=== PATIENT | female | born 1995 | race Caucasian/White ===

== ENCOUNTER 2017-11-14 04:16 | Inpatient (IN) ==
[2017-11-14] MEDS ORDERED: LIDOCAINE W/ SODIUM BICARB 0.5 ML SYR ONE (04:44)
[2017-11-14] MEDS ORDERED: NORMAL SALINE 10 ML SYRINGE FLUSH IVP PRN ×3 (04:55→20:06)
[2017-11-14] MEDS ORDERED: NALOXONE 0.4 MG/1 ML VIAL IVP PRN (04:56)
[2017-11-14] MEDS ORDERED: Carboprost Inj 250 MCG/ML AMP IM PRN (04:56)
[2017-11-14] MEDS ORDERED: fentaNYL Inj 100 MCG/2 ML VIAL IV PRN (04:56)
[2017-11-14] MEDS ORDERED: CALCIUM CARBONATE 500 MG (TUMS) CHEWABLE TABLET PO PRN ×2 (04:56→20:06)
[2017-11-14] MEDS ORDERED: Famotidine Inj 20 MG in Normal Saline Flush 10 ML IVP PRN ×4 (04:56)
[2017-11-14] MEDS ORDERED: Metoclopramide Inj 10 MG/2 ML VIAL IV PRN (04:56)
[2017-11-14] MEDS ORDERED: BUTORPHANOL TARTRATE 2 MG/1 ML VIAL IVP PRN (04:56)
[2017-11-14] MEDS ORDERED: diphenhydrAMINE 50 MG/1 ML VIAL IVP PRN ×2 (04:56→20:06)
[2017-11-14] MEDS ORDERED: Phenylephrine Inj 50 MCG in Normal Saline Flush 0.5 ML IVP PRN (04:56)
[2017-11-14] MEDS ORDERED: LIDOCAINE W/ SODIUM BICARB 0.5 ML SYR SUBD PRN (04:56)
[2017-11-14] MEDS ORDERED: Nalbuphine Inj 20 MG/ML Ampule IVP PRN ×2 (04:56→20:06)
[2017-11-14] MEDS ORDERED: ONDANSETRON 4 MG/2 ML VIAL IVP PRN ×2 (04:56→20:06)
[2017-11-14] MEDS ORDERED: TERBUTALINE SULFATE 1 MG/1 ML SDV SUBCUT PRN (04:56)
[2017-11-14] MEDS ORDERED: LIDOCAINE HCL 2 % 10 ML JELLY URO-JECT TOPICAL PRN ×2 (04:56→20:06)
[2017-11-14] MEDS ORDERED: MISOPROSTOL 200 MCG TABLET RECTAL PRN (04:56)
[2017-11-14] MEDS ORDERED: Lidocaine 1% 10 MG/ML - 20 ML VIAL SUBCUT PRN (04:56)
[2017-11-14] MEDS ORDERED: METHYLERGONOVINE MALEATE 0.2 MG/1 ML VIAL IM PRN (04:56)
[2017-11-14] MEDS ORDERED: Naloxone Inj 0.01 MG in Normal Saline Flush 1 ML IVP PRN (04:56)
[2017-11-14] MEDS ORDERED: CefOXitin Inj 2 GM in Sodium Chloride 0.9% 100 ML IV PRN (04:56)
[2017-11-14] MEDS ORDERED: OXYTOCIN 10 UNIT/1 ML IM PRN (04:56)
[2017-11-14] MEDS ORDERED: CITRIC ACID/SODIUM CITRATE 30 ML CUP PO PRN (04:56)
[2017-11-14] MEDS: Lactated Ringers-OB Dept 1,000 ML PRIMARY IV SCH ×4 (05:00→17:23)
[2017-11-14] MEDS ORDERED: Oxytocin 20 Units + LR 20 UNIT/1,000 ML BAG IV SCH ×3 (05:00→20:06)
[2017-11-14 05:07] LABS: Hematocrit [HCT] 42.2 % (37.0-47.0); Hemoglobin [HGB] 14.9 g/dL (12.0-16.0); MEAN CORPUSCULAR HEMOGLOBIN 31.3 PG (27-31); MEAN CORPUSCULAR HGB CONC 35.3 g/dL (33-37); MEAN CORPUSCULAR VOLUME 88.7 FL (81-99); MEAN PLATELET VOLUME 10.4 FL (7.4-12.2); RED BLOOD COUNT 4.76 10^6/uL (4.20-5.40)
[2017-11-14] MEDS ORDERED: Fent/Bupiv 2mcg/0.0625% Epid 250 ML ONE (05:39)
--- NOTE | 2017-11-14 06:07 | CRNA.PROCE ---
Central Neuraxis Block Placemt - - Safety Measures: Time Out Taken - - Type of Block: Epidural Reason for Block: Analgesia Moniters Used During Block: SPO2, NIBP Skin Prep Used: ChloroPrep Draped: Yes Skin Infiltration - Enter Amount Used in Comment Field: 1% Xylocaine (mL): Yes ( skin wheal) Spinal Needle Used: 18 Hustead 80 mm Local Anesthetic - Enter Amount Used in Comment Field: 1.5 % Xylocaine with Epinephrine 1:200,000 (mL): Yes (5ml) Number of Centimeters Catheter Threaded: 4 Bioclusive Dressing Applied: Yes Anesthesia Time - Other Weight: 94.347 kg Height: 5 ft 2 in Body Mass Index (BMI): 38.0
[2017-11-14] MEDS ORDERED: fentaNYL 2 MCG/BUPIVACAINE 0.0625%/NS 0.9% 250 ML BAG EPIDURAL SCH (06:15)
--- NOTE | 2017-11-14 06:16 | CRNA.PROGR ---
Anesthesia Time - - Start date: 11/14/17 - Procedure/Recovery Time Anesthesia : Time In: 05:40 Anesthesia : Time Out: 17:55 - Other Weight: 94.347 kg Height: 5 ft 2 in Body Mass Index (BMI): 38.0 Physical Status: P2 Anesthesia Type: Epidural Obstetrics: Planned vaginal delivery w/ neuraxial labor anesthesia/analog
[2017-11-14 06:24] LABS: AMPHETAMINE SCREEN NEGATIVE (NEG); COCAINE SCREEN NEGATIVE (NEG); METHADONE URINE SCREEN NEGATIVE (NEG); METHAMPHETAMINES SCREEN,URINE NEGATIVE (NEG); OPIATE SCREEN,URINE NEGATIVE (NEG); TRICYCLIC ANTIDEPRESSANT,URINE NEGATIVE (NEG); URINE SAMPLE TYPE CLEAN CATCH URINE; URINE SPECIFIC GRAVITY - MAN 1.023
[2017-11-14 06:25] LABS: CANNABINOID SCREEN,URINE POSITIVE (NEG)
[2017-11-14] MEDS: ePHEDrine Inj 5 MG in Normal Saline Flush 1 ML IVP PRN ×3 (06:46→07:43)
[2017-11-14 08:54] LABS: BLOOD UREA NITROGEN 12 mg/dL (7-22); SERUM ALBUMIN 3.6 g/dL (3.5-4.8)
--- NOTE | 2017-11-14 10:22 | OB.PROGRES ---
Interval History: The patient is a 22-year-old at 39-5/7 weeks by a 09/10/2017 ultrasound which gave her an estimated gestational age of 29-5/7 weeks although from her last menstrual period she was supposed to be 32+ weeks. The patient had late care and was first seen at [facility] in early September 2017. The patient has had an eventful in that she has had 3, what is thought to be, seizures in this and went to the emergency room each time with the last one in October 2017. Each time, she was seen in [place], [place] for the seizures. The last time she bit her tongue and had significant bleeding. The seizures were witnessed by her and were at night when she was either sleeping or just returning to bed in the middle of the night. This was the case for the last one. The patient was not placed on medications. The patient was sent home from the emergency room soon after arrival. The patient does have an appointment with neurology to evaluate possible seizure disorder about a week from now in [place], [place]. The patient has not seen a neurologist. She has not had a scan of her head. Additionally, the patient went tobacco about 2 or 3 weeks ago per the patient. The patient does admit to smoking marijuana for nausea and vomiting and has continued the marijuana throughout the . The patient has a positive UDS today for marijuana. The patient started having contractions last evening with no leakage of fluid and no bleeding. The patient was going to go to [place] or [facility] labor and delivery but decided to come here since she saw Dr. Glasgow here a few times. The patient stated her contractions were hurting significantly earlier this morning and she requested an epidural. With the epidural, the patient did have decreased blood pressure and then there was a heart rate decelerations. Recovery was with fluid bolus, position change, and ephedrine as well as oxygen. The patient believes that this baby perhaps maybe slightly smaller than her last baby a year ago. She has not gained as much weight in this . Past medical history as above. Past OB history significant for vaginal delivery of about a 6-1/2 pound baby October 2016. Vaginal delivery after pushing 2 times. No significant lacerations. No complications in labor. Past surgical history noncontributory Allergy to penicillin-hives Tobacco-patient smoked during but stated she quit about 2-3 weeks ago completely, No alcohol, positive marijuana throughout the entire . Objective - Cervical Exam Cervical Exam: 5/80/-3 cephalic. Membranes intact Madeline: Contraction frequency is perhaps every 2-4 minutes but contraction length is decreased. Heart Rate Interpretation Category: Category I (After epidural there was a prolonged deceleration that resolved with position change and fluid bolus and ephedrine. Patient did become hypotensive after epidural.) - Labs CBC and BMP: 11/14/17 05:00 11/14/17 05:00 - Vital Signs Last Taken Vital Signs: Vital Signs - Last Taken Temperature 97.5 F 11/14/17 04:30 Pulse Rate 86 11/14/17 08:45 Respiratory Rate 16 11/14/17 09:55 Blood Pressure 120/66 11/14/17 08:45 Pulse Ox 98 11/14/17 08:45 - Additional Details Additional Details: Exam completed after epidural was placed Lungs clear to auscultation Heart regular rate and rhythm Abdomen is gravid and soft and the baby is cephalic by Chris's Extremity- 1+ edema bilaterally. Reflexes were 1-2+ bilaterally in the patellar region. No clonus. SCDs are currently in place. Assessment and Plan - Assessment / Plan Additional Assessment/Plan Details: Assessment: IUP 39-5/7 weeks by an ultrasound 09/10/2017 which composite dating showed that she was 29-5/7 weeks' although the LMP stated she maybe 32+ weeks at that time. The patient presented in latent labor and now early labor Contractions have decreased in length of contraction and frequency is perhaps slightly decreased. GBS negative The patient is allergic to penicillin-hives The patient's first blood pressure was 114/93. The patient's labs show slight hemoconcentration the platelets are normal. Liver function tests are normal and creatinine 0.5. That blood pressure was taken with a contraction. Blood pressure since that time of been normal. Or at least I do not see a recorded elevated blood pressure. I do not believe the patient has preeclampsia. Late OB care Positive marijuana use and positive urine drug screen for cannabinoids today and historically The patient gives a history of having 3 "seizures" during her with the last one in October 2017. The patient has not had an EEG or her head scanned. The patient does have an appointment with neurology in [place], [place] next week for evaluation. Plan: The patient was admitted earlier and secondary to pain with contractions, the patient received an epidural. The patient's contraction length and perhaps frequency has decreased. They're difficult to trace on the monitor. Pitocin augmentation will be started. AROM may be completed later after contraction pattern and length of contractions improved and the baby's head descends into the pelvis more I did contact our maternal- medicine consultants in [facility] secondary to the patient's possible history of 3 seizures in whether or not to treat the patient in labor with an antiepileptic medication intravenously. We discussed the patient and it was decided not to treat the patient. If the patient were to have a seizure, the patient may be treated with Ativan per [facility]. Expectant management. The patient desires an IUD . This will not be completed at the time of the delivery.
[2017-11-14] MEDS ORDERED: LORazepam 2 MG/1 ML VIAL IVP PRN (10:59)
--- NOTE | 2017-11-14 15:35 | OB.PROGRES ---
Interval History: The patient states that she is comfortable and she has been resting on and off. The patient does not have any pelvic pressure. No bleeding. Objective - Cervical Exam Cervical Exam: Cervix was 6/90/-1 and AROM with clear fluid. There was fluid with AROM but not a copious amount. [place]: Contractions every 2-3 minutes on 5 milliunits of Pitocin. The Pitocin was decreased at 3 milliunits after AROM Heart Rate Interpretation Category: Category I - Labs CBC and BMP: 11/14/17 05:00 11/14/17 05:00 - Vital Signs Last Taken Vital Signs: Vital Signs - Last Taken Temperature 97.6 F 11/14/17 12:45 Pulse Rate 73 11/14/17 12:45 Respiratory Rate 16 11/14/17 12:45 Blood Pressure 120/66 11/14/17 08:45 Pulse Ox 98 11/14/17 13:52 Assessment and Plan - Assessment / Plan Additional Assessment/Plan Details: Assessment: IUP 39-5/7 weeks with AROM after cervical change with Pitocin augmentation. Clear fluid. GBS negative. No symptoms or signs of seizures. Plan: Continue to observe I would like to check the patient's cervix in 2 hours. If there is not significant change, I would like to place an IUPC. The placenta is posterior. I did discuss this with the patient and the nurses. The patient expressed understanding with the above plan. Pitocin at 3 milliunits currently. The Pitocin can be increased after 30 minutes of AROM if contractions started to space out. Anticipate a vaginal delivery.
--- NOTE | 2017-11-14 18:18 | OB.OP.NOTE ---
Operative Report Surgeon: Tres Anesthesia Type: Regional (Epidural) Anesthesia Provider: Ellis Hogan CRNA Surgery Date: 11/14/17 Preoperative Diagnosis: IUP 39-5/7 weeks with latent to active labor. Late care. Possible seizure disorder in . Marijuana use in . Group B strep negative Postoperative Diagnosis: Same. Nuchal cord 1 not reducible on perineum. Nuchal cord clamped and cut on perineum Procedure: Pitocin augmentation. Artificial rupture of membranes-clear fluid. Nuchal cord 1 cut on perineum. Spontaneous vaginal delivery. Spontaneous delivery of placenta-intact appearing Estimated Blood Loss (mL): 350 Fluids: Pitocin augmentation. Pitocin after third stage of labor-delivery of placenta Complications: None apparent Findings at Surgery: Male infant with Apgars 8 and 9 Weight currently is pending ABG showed a pH of 7.389, PCO2 of 32.7, HCO3 of 19.8, base excess -5 Indications for the Procedure: Intrauterine at 39-5/7 weeks presented in latent going into active phase of labor. Patient is a with previous vaginal delivery Description of Procedure: I presented to labor and delivery around 1730 hrs. and the nurse had just checked the patient at 1710 hrs. and the patient's cervix was 9 cm with most of the cervix on the patient's right side. The patient stated that she felt pelvic pressure and felt like pushing. I examined the patient and the patient's cervix was completely dilated and effaced and the baby was at +1 station. The room was readied for the delivery. The patient was placed in the dorsal lithotomy position in the [facility]. The patient pushed 2 times and the baby's head was delivered in the OA presentation righting itself to the MARLENE position. There was a nuchal cord 1 palpated but I could not reduce it on the perineum. Therefore the nuchal cord was clamped 2 and then between the clamps I cut to reduce the nuchal cord. The baby's anterior shoulder and then posterior shoulder was delivered and the entire baby delivered rather quickly. I then suctioned the baby's mouth and nose gently. The baby was brought over to the warmer just secondary to the rapid delivery. A section of cord was obtained for cord gases and then cord blood was obtained. Later a section of cord would be obtained secondary to the positive UDS. The placenta was then delivered spontaneously and appeared intact on examination. I did show the placenta to the patient. I then examined the patient's perineum and there were no lacerations that required repair. There was one very small skid lisa on the patient's left labia minora. I encouraged the patient to use the gilmer-bottle when voiding. There was minimal bleeding. The uterus was firm with massage. A rectal exam was completed and did not show any buttonhole lacerations. The patient was cleansed of the blood on her perineum. Again, minimal bleeding. Fundus was firm with massage. The patient and her baby would recover in the delivery room which is now the room. Orders were written. Close observation. Plan: The patient and her baby will recover in the delivery/ room. Close observation. CBC in the morning.
[2017-11-14] MEDS ORDERED: DIPH,PERTUSS,TET(ADACEL) VAC/PF 0.5 ML (Tdap) IM ONE (20:06)
[2017-11-14] MEDS ORDERED: HYDROcodone-APAP 5 MG -325 MG TABLET PO PRN (20:06)
[2017-11-14] MEDS ORDERED: GLYCERIN/WITCH HAZEL 1 BOX TOPICAL PRN (20:06)
[2017-11-14] MEDS ORDERED: diphenhydrAMINE 25 MG CAPSULE PO PRN (20:06)
[2017-11-14] MEDS ORDERED: ACETAMINOPHEN 325 MG TABLET PO PRN (20:06)
[2017-11-14] MEDS ORDERED: BENZOCAINE/MENTHOL SPRAY 56 GM BOTTLE TOPICAL PRN (20:06)
[2017-11-14] MEDS ORDERED: IBUPROFEN 800 MG TABLET PO PRN (20:06)
[2017-11-14] MEDS ORDERED: LANOLIN HPA 40 GM TUBE TOPICAL PRN (20:06)
[2017-11-14] MEDS ORDERED: Ondansetron ODT Tab 4 MG TAB PO PRN (20:06)
[2017-11-14] MEDS: DOCUSATE 100 MG CAPSULE PO SCH (21:11)
[2017-11-15 05:24] LABS: Hematocrit [HCT] 40.6 % (37.0-47.0); Hemoglobin [HGB] 13.8 g/dL (12.0-16.0); MEAN CORPUSCULAR HEMOGLOBIN 30.9 PG (27-31); MEAN CORPUSCULAR VOLUME 90.8 FL (81-99); MEAN PLATELET VOLUME 10.7 FL (7.4-12.2); RED BLOOD COUNT 4.47 10^6/uL (4.20-5.40)
--- NOTE | 2017-11-15 08:41 | CRNA.PROGR ---
Anesthesia Note - Progress Notes Anesthesia Progress Note: Post Epidural Note Pt is lying in bed comfortably, she has been able to eat reg diet, she has been up and moving , to the restroom. She complains of some mild discomfort in her lower back at point of epidural insertion. Hot packs were suggested. Current VS are stable. Vital Signs - Last Taken Temperature 98.3 F 11/15/17 04:45 Pulse Rate 75 11/15/17 04:45 Respiratory Rate 20 11/15/17 04:45 Blood Pressure 123/71 11/15/17 04:45 Pulse Ox 96 11/15/17 04:45
[2017-11-15] MEDS ORDERED: Prenatal Multivitamin Tab 1 TAB TAB PO SCH (09:00)
[2017-11-15] MEDS: DOCUSATE 100 MG CAPSULE PO SCH (09:52)
[2017-11-15 19:52] VITALS: BP 135/90; RESP 20; TEMP 97.6; O2SAT 99
--- NOTE | 2017-11-17 20:07 | DCSUMMARY ---
Hospitalization Summary Admit Date: 11/14/17 Discharge Date: 11/15/17 Primary Diagnosis:: s/p Primary Secondary Diagnosis:: Late care, tobacco abuse, marijuana use, possible seizure disorder Delivery Type: Vaginal Hospital Course: Patient presented 11/14/17 with regular contractions. AN epidural was used for pain control. AROM at 6 cm and then she progressed to complete. Delivered after 2 pushes. Tight nuchal cord required clamping and cutting at perineum priro to delivery of the body. She recovered well post . / Postop Complications: none apparent Complications: none apparent Exam - Vitals Vital Signs: Vital Signs Temperature 97.6 F Temperature Source Oral Pulse Rate [Pulse Oximeter] 112 Pulse Rate 75 Respiratory Rate [Abdomen] 15 Respiratory Rate 20 Blood Pressure [Left Arm] 105/57 Blood Pressure [Right Arm] 135/90 Blood Pressure 124/71 Pulse Ox 99 Oxygen Delivery Method Room Air Height 5 ft 2 in Weight 208 lb - General General Appearance: No Acute Distress, Cooperative - Head Head Exam: Normal Inspection - Neck Neck Exam: Normal Inspection - Respiratory Respiratory Exam: POSITIVE: Clear to Auscultation - Bilaterally, Breathing Non Labored - Cardiovascular Cardiovascular Exam: POSITIVE: RRR - GI/Abdominal GI/Abdominal Exam: POSITIVE: Normal Bowel Sounds, Non Tender Additional GI/Abdominal Exam Details: Uterus firm at umbilicus - External Exam: POSITIVE: Deferred Exam: POSITIVE: Deferred - Extremities Extremities Exam: POSITIVE: Normal Inspection, Normal Capillary Refill, No Edema Present, Negative Hugh's sign. NEGATIVE: Calf Tenderness - Neurological Neurological Exam: POSITIVE: Alert, Oriented x 3 - Psychiatric Psychiatric Exam: POSITIVE: Normal Affect, Normal Mood Patient Problems - Patient Problem List (1) (normal spontaneous vaginal delivery) Status: Acute Code(s): O80 - Encounter for full-term uncomplicated delivery Category: Medical (2) Late care Status: Chronic Code(s): O09.30 - Supervision of with insufficient care, unspecified trimester Category: Medical (3) Positive urine drug screen Status: Chronic Code(s): R82.5 - Elevated urine levels of drugs, medicaments and biological substances Category: Medical (4) Seizure disorder during in third trimester Status: Chronic Code(s): O99.353 - Diseases of the nervous system complicating , third trimester; G40.909 - Epilepsy, unspecified, not intractable, without status epilepticus Support Text: 22 yo G2 now P2, PPD 1 s/p . complicated by establishing care late , tobacco abuse, marijuana use, and possible seizure disorder. -Pain well controlled, not even needing NSAIDS -Bottle feeding -Scheduled to see Neurology on Wednesday11/19/17 in [place] for further eval of possible seizure disorder -D/c from hospital -F/u with me in 6 weeks for IUD insertion, pp eval (patient had wanted a pp tubal <21 yo and on medicaid) Category: Medical
== END 2017-11-15 19:40 | disposition home or self-care (01) | DRG 775 ==
LOC: OBOP 04:16 → OBIP 04:56
PROVIDERS: ADMIT Obstetrics & Gynecology; ATTEND Student in an Organized Health Care Education/Training Program